=== PATIENT | female | born 1985 | race Caucasian/White ===

== ENCOUNTER 2019-05-01 11:12 | Emergency (ER) | payer OTHER, SELFPAY ==
[2019-05-01 11:20] VITALS: BP 114/80; PULSE 62; RESP 16; TEMP 36.8; O2SAT 99; BMI 24.2
--- NOTE | 2019-05-01 11:25 | ED_ITS ---
HPI - Extremity Injury (Upper) General Chief Complaint: Wound/Laceration Stated Complaint: Laceration on left hand Time Seen by Provider: 05/01/19 11:15 Source: patient Mode of arrival: Ambulatory Limitations: no limitations History of Present Illness HPI narrative: 33-year-old female nonsmoker with noncontributory medical history presents with a laceration on the palmar surface of her left hand which she suffered on . She was seen and evaluated at another facility and had skin adhesive applied. She has been doing rather well and then this morning her daughter pulled the glue off of her hand in the wound open back up. She has no redness or drainage. She has gradually improving range of motion. She denies any systemic findings such as fever or chills. MD complaint: injury to: left Onset (ago): day(s) Other Extremity Injury: Left: hand Other injuries: none Handedness: right Place: home Severity: mild Relieving factors: immobilization and rest Exacerbating factors: movement of extremity Context: laceration Associated symptoms: denies other symptoms Treatments prior to arrival: bandage Related Data Previous Rx's Medication Instructions Recorded cephalexin [Keflex] 500 mg PO QID 7 Days #28 cap 05/01/19 Allergies Allergy/AdvReac Type Severity Reaction Status Date / Time milk [MILK] Allergy Intermediate Unverified 11/18/17 11:46 COUGH MEDS Allergy Mild SUPER Uncoded 11/18/17 11:46 HIGH Review of Systems Constitutional Constitutional: Denies chills, Denies fatigue, Denies fever(s), Denies frequent falls, Denies lethargy and Denies weakness Eyes Eyes: Denies change in vision, Denies eye discharge, Denies irritation and Denies loss of vision ENT Ears, Nose, Mouth, and Throat: Denies change in voice, Denies dizziness, Denies neck pain, Denies sore throat and Denies throat swelling Cardiovascular Cardiovascular: Denies chest pain, Denies irregular heart rhythm, Denies lightheadedness, Denies palpitations, Denies dyspnea, Denies dyspnea on exertion and Denies orthopnea Respiratory Respiratory: Denies cough, Denies dyspnea, Denies dyspnea on exertion and Denies wheezing Gastrointestinal Gastrointestinal: Denies abdominal pain, Denies change in bowel habits, Denies diarrhea, Denies nausea and Denies vomiting Genitourinary Genitourinary: Denies hematuria, Denies flank pain, Denies urinary incontinence and Denies urinary urgency Musculoskeletal Musculoskeletal: Denies back pain, Denies muscle weakness, Denies neck pain, Denies numbness and Denies tingling Integumentary/Breasts Skin/Breast: Denies pruritus, Denies erythema, Denies rash and Reports wounds Neurologic Neurologic: Denies behavioral changes, Denies confusion, Denies dizziness, Denies frequent falls, Denies loss of vision, Denies numbness, Denies tingling and Denies weakness Psychiatric Psychiatric: Denies anxiety, Denies behavioral changes, Denies confusion, Denies depression, Denies homicidal ideation and Denies suicidal ideation Endocrine Endocrine: Denies fatigue, Denies flushing and Denies palpitations Hematologic/Lymphatic Hematologic/Lymphatic: Denies easy bruising Allergic/Immunologic Allergic/Immunologic: Denies urticaria, Denies throat swelling and Denies wheezing [facility] Social History (Updated 05/01/19 @ 11:29 by Vishal Heart DO) Smoking Status: Never smoker Exam Narrative Exam Narrative: GEN: AOx3 and in mild distress EYES: Pupils are equal, round, and reactive to light and accommodation. Extraoccular muscles are intact bilaterally. There is no subconjunctival hemorrhage or exudate. CHEST: Lungs are clear to auscultation bilaterally and free of wheezes, rales, or rhonchi. Heart rate is regular rhythm, there are no murmurs, clicks, rubs, or gallops. There is no chest wall tenderness. ABD: Abdomen is soft and nontender. There is no guarding or rebound. Bowel sounds are normal in all 4 quadrants. There is no mass or organomegaly. EXT: Full painless ROM of all extremities with no loss of sensation or strength. Full range of motion and strength of hand SKIN: Healing wound on palmar surface of left hand with small portions of skin adhesive still present. No drainage, erythema or induration. Initial Vital Signs Initial Vital Signs: Vital Signs Temperature 98.3 F 05/01/19 11:20 Pulse Rate 62 05/01/19 11:20 Respiratory Rate 16 05/01/19 11:20 Blood Pressure 114/80 05/01/19 11:20 Pulse Oximetry 99 05/01/19 11:20 Course Orders Ordered: ED Orders 05/01/19 11:26 XR hand LT min 3V Stat Vital Signs Vital signs: Vital Signs - 8 hr 05/01/19 11:20 Temperature 98.3 F Pulse Rate 62 Respiratory Rate 16 Blood Pressure 114/80 Pulse Oximetry 99 MDM - Extremity Injury (Upper) Imaging Data Hand Xray: Radiologist's impression: [address] [address] XRay Report Signed Patient: Alice Henson EMR#: [id number] : 1985Acct:[id number] Age/Sex: 33 / FDate of Service: 05/01/19 Loc: ED Accession Number: [id number] Procedure: XR hand LT min 3V Ordering Provider: Vishal Heart D.O. PROCEDURE: XR HAND LT MIN 3V INDICATIONS: puncture wound, FB? TECHNIQUE: 3 views of the left hand acquired. COMPARISON: None. FINDINGS: Bones: No fractures or dislocations. Carpal bones are normally aligned. No suspicious bony lesions. Soft tissues: No radiopaque foreign body. No suspicious soft tissue calcifications. IMPRESSION: 1. No fracture or radiopaque foreign body. Dictated by: Severo Sims M.D. on 05/01/2019 at 10:54 Approved by: Severo Sims M.D. on 05/01/2019 at 10:55 Discharge Plan Departure Patient Disposition: Home Clinical Impression: Laceration Discharge Date/Time: 05/01/19 12:51 Instructions: How to Care for a Laceration After Repair Activity Restrictions/Additional Instructions: *You have been diagnosed with [delayed presentation of hand laceration] *What to do: *Take medications as directed *Follow up with your primary care provider in 2-3 days, call for an appointment. Let them know you were seen in the Emergency Department and that we ask that you be seen in follow up *Return to ER if you should have any new, worsening or concerning symptoms, such as [ worsening pain, redness, swelling, drainage or decreased range of motion] Prescriptions: New cephalexin [Keflex] 500 mg capsule 500 mg PO QID 7 Days Qty: 28 RF: 0
== END 2019-05-01 12:51 | disposition home or self-care (01) ==
PROVIDERS: Emergency Provider Emergency Medicine
DX: S61.412A Laceration without foreign body of left hand, initial encounter (principal)
CPT/HCPCS: 73130; 99283

== ENCOUNTER → 2024-12-01 13:37 | Outpatient (CLI) | payer OTHER, SELFPAY | PROVIDERS: Family Provider Nurse Practitioner Family; PCP Nurse Practitioner Family; Referring Provider Nurse Practitioner Family; Visit Provider Nurse Practitioner Family | DX: M79.609 Pain in unspecified limb (principal); R20.2 Paresthesia of skin | CPT/HCPCS: 95886; 95911 ==